=== PATIENT | female | born 1955 | race Caucasian/White ===

== ENCOUNTER 2016-05-26 15:23 | Emergency (ER) | payer OTHER ==
[2016-05-26 16:53] LABS: RED BLOOD COUNT 3.38 M/UL (4.00-5.10); WHITE BLOOD COUNT 12.7 K/UL (4.5-11.0)
== END 2016-05-26 23:02 | disposition home or self-care (01) ==
LOC: ER1 15:23
PROVIDERS: Emergency Medicine
DX: N18.9 Chronic kidney disease, unspecified (principal); D64.9 Anemia, unspecified; N20.0 Calculus of kidney
CPT/HCPCS: 36415; 70450; 71010; 80053; 81001; 82550; 82553; 83605; 83690; 83874; 84484; 85025; 85610; 85730; 87040; 87077; 87086; 87186; 93005; 99285

== ENCOUNTER 2020-05-09 18:23 | Emergency (ER) | payer MEDICARE, OTHER ==
[~2020-05-09 18:23] MED LIST: DIFLUCAN150 MG PO; KEFLEX CAP 500500 MG PO; PROTONIX 20 MG20 MG PO
[2020-05-09 21:46] LABS: HEMOGLOBIN 13.3 gm/dl (12.3-15.3); RED BLOOD COUNT 4.31 M/UL (4.00-5.10); WHITE BLOOD COUNT 20.2 K/UL (4.5-11.0)
== END 2020-05-10 00:42 | disposition home or self-care (01) ==
LOC: ER1 18:23
PROVIDERS: Physician Assistant Medical
DX: R53.1 Weakness (principal); R06.02 Shortness of breath; I11.9 Hypertensive heart disease without heart failure; Z20.822 Contact with and (suspected) exposure to COVID-19; E11.9 Type 2 diabetes mellitus without complications; Z90.710 Acquired absence of both cervix and uterus; Z87.442 Personal history of urinary calculi
CPT/HCPCS: 0240U; 71045; 80053; 81001; 84484; 85025; 93005; 99285

== ENCOUNTER 2020-12-29 17:20 | Emergency (ER) | payer MEDICARE, OTHER ==
[2020-12-29] MEDS ORDERED: FLONASE 0.05% N16 GM (19:39)
[2020-12-29] MEDS ORDERED: DELSYM30 MG/5 ML PO (19:39)
[2020-12-29] MEDS ORDERED: PSEUDOEPHEDRINE60 MG PO (19:39)
== END 2020-12-29 19:48 | disposition home or self-care (01) ==
LOC: ER1 17:20
DX: J06.9 Acute upper respiratory infection, unspecified (principal); Z20.822 Contact with and (suspected) exposure to COVID-19; I13.10 Hypertensive heart and chronic kidney disease without heart failure, with stage 1 through stage 4 chronic kidney disease, or unspecified chronic kidney disease; E11.22 Type 2 diabetes mellitus with diabetic chronic kidney disease; Z90.710 Acquired absence of both cervix and uterus
CPT/HCPCS: 71045; 96374; 99283; J1885; U0002

== ENCOUNTER → 2021-01-28 | Outpatient (CLI) | payer MEDICARE, OTHER ==
[~2021-01-28] MED LIST changes: +DELSYM30 MG/5 ML PO; +FLONASE 0.05% N16 GM; +PSEUDOEPHEDRINE60 MG PO
== END ==
LOC: KOH-I 11:30
DX: E04.1 Nontoxic single thyroid nodule (principal)
CPT/HCPCS: 76536